=== PATIENT | male | born 1960 | race Asian ===

== ENCOUNTER 2018-02-01 20:50 | Emergency (ER) | payer OTHER ==
[2018-02-01] MEDS ORDERED: MAG HYDROX/AL HYDROX/SIMETH 30 ML UDCUP PO ONE (21:16)
[2018-02-01] MEDS ORDERED: HYOSCYAMINE SULFATE 0.125 MG TAB PO ONE (21:17)
[2018-02-01] MEDS ORDERED: ALBUTEROL 3 ML DEYVIAL IH ONE (21:26)
--- NOTE | 2018-02-01 21:27 | EDPHY ---
H & P Stated Complaint: c/o difficulty breathing and CP on and off since 08 Time Seen by Provider: 02/01/18 20:56 HPI/ROS: This patient presents with dyspnea and chest pain. He noticed the burning chest pain since 8:00 a.m. This morning waxing waning since that time but persistent through the day with no clear exacerbating or alleviating factors. Patient is primarily Monk speaking from [place] originally but speaks in [facility] with some proficient C and his son, also provides detailed history. He reports 4/10 peak intensity substernal location of the chest pain. It is nonradiating. He reports a mild sense of dyspnea in addition. He also reports a chronic cough that is dry in nature present for a year or so now. He relates that he had a normal cardiac stress test 2 weeks ago in [place] due to similar symptoms of lesser intensity. Patient denies any other associated symptoms. He notes no exacerbating factors. He came in by private vehicle. ROS: Constitutional: No fevers or chills. No fatigue. HEENT: No recent URI symptoms or other complaints pulmonary: Again dyspnea today that is mild associated with a chronic cough for over a year with dry coughs intermittently. His son notes that the patient seems to cough more after the weekend if he drinks multiple alcohol beverages the day before. Cardiovascular: Patient is dizzy this morning. No heart palpitations. No leg swelling or pain. The patient exercises vigorously yesterday including treadmill exercise and weight lifting without any chest pain. His son relates that the patient tends to work out for to 3 times a week and has not had any chest pains during this workouts. GI: No nausea. No vomiting. No abdominal pain. The patient reports a history of reflux and reports the ran out of Zantac. : No complaints Integumentary: No pallor or diaphoresis. No skin rash Neuro: No complaints 10 point review of symptoms is performed and otherwise negative with exception of pertinent positives and negatives listed in HPI and ROS Source: Patient Exam Limitations: No limitations - Personal History Current Tetanus Diphtheria and Acellular Pertussis (TDAP): Yes - Medical/Surgical History PMH: GERD Hx Asthma: No Hx Chronic Respiratory Disease: No Hx Diabetes: No Hx Cardiac Disease: No Hx Renal Disease: No Hx Cirrhosis: No Hx Alcoholism: No Hx HIV/AIDS: No Hx Splenectomy or Spleen Trauma: No Other PMH: had Stress test 2 wks ago @ [place] card /colon poylps removed - Family History Significant Family History: No pertinent family hx. No: Heart disease, Vascular disease - Social History Smoking Status: Former smoker Alcohol Use: Occasionally (Patient usually drinks some alcohol on weekends.) Drug Use: None - Physical Exam Exam: General Appearance: Pleasant male Alert, no distress. Eyes: Pupils equal and round no pallor or injection. ENT, Mouth: Mucous membranes moist. Oropharynx is clear. Respiratory: There are no retractions, lungs are clear to auscultation. No chest wall tenderness Cardiovascular: Regular rate and rhythm. No murmur gallop rub. No peripheral edema or calf swelling or tenderness maintains 2+ symmetric radialis pulses bilaterally Gastrointestinal: Abdomen is soft and nontender, no masses, bowel sounds normal. Neurological: GCS 15 with no focal deficits. Skin: Warm and dry, no rashes. Musculoskeletal: Neck is supple nontender. Extremities are symmetrical, full range of motion. Psychiatric: Mood and affect are normal DIFFERENTIAL DIAGNOSIS: After history and physical exam differential diagnosis was considered for GERD with reactive airway symptoms, esophageal spasm, bronchitis, pulmonary embolism, pneumonia, pulmonary lesion, myocardial ischemic disease Constitutional: Initial Vital Signs Temperature (C) 36.6 C 02/01/18 20:59 Heart Rate 72 02/01/18 20:59 Respiratory Rate 18 02/01/18 20:59 Blood Pressure 136/92 H 02/01/18 20:59 O2 Sat (%) 94 02/01/18 20:59 O2 Delivery Mode Room Air Allergies/Adverse Reactions: No Known Allergies Allergy (Unverified 12/14/13 13:44) Home Medications: Medication Instructions Recorded Calcium Carbonate [[id number]] 500 mg PO HS 12/06/13 Multivitamins [Multivitamin (*)] 1 tab PO HS 12/06/13 [place]-3 Fatty Acids [Fish Oil 1000 2,000 mg PO HS 12/06/13 mg (*)] Ibuprofen [Motrin (*)] 400 mg PO QID PRN 12/07/13 Fluticasone Hfa 220 Mcg [Flovent 2 puffs IH DAILY #1 mdi 02/01/18 220 MCG Hfa MDI (*)] Levalbuterol Inhaler [Xopenex Hfa 2 puffs IH Q4 PRN #1 mdi 02/01/18 Inhaler] Ranitidine HCl [Zantac] 300 mg PO HS #30 tablet 02/01/18 Medical Decision Making - Diagnostics EKG Interpretation: 12 lead EKG performed at 8:58 p.m. Reveals sinus rhythm at 68 Intervals: Normal throughout [place]ang: Normal throughout ST segments: Normal throughout Overall assessment: Sinus rhythm without evidence of acute ischemia by my interpretation Imaging Results: Two view chest x-ray: Normal by my interpretation Imaging: I viewed and interpreted images myself ED Course/Re-evaluation: Predicted peak flow 588. Patient's peak flow is 400. Patient did not tolerate the albuterol neb beyond the 1st few minutes because it caused increased coughing in the patient. I think that he will tolerate Xopenex better but he was not interested in having another neb while here tonight. Discussion: This patient presents with burning chest pain of 1 day's duration in the setting of a known history of GERD currently off of his H2 yuri due to running out of it. He has associated chronic cough and a slight tight feeling in his chest. I think this patient has reflux associated bronchial inflammation/constriction I counseled regarding this in some detail including drawing diagrams explaining it. Given normal recent stress test, normal EKG normal troponin despite a full day of pain and no significant risk factors other than age and male sex, I do not think this patient is having cardiac source of his pain. Similarly, no abnormal findings on chest x-ray that would suggest pneumonia, pneumothorax or other red flag findings. Given low risk of pulmonary embolism coming in today with a negative D-dimer, we have effectively ruled out PE. I counseled them again in some detail regarding GERD and bronchial constriction/inflammation. Will plan to treat him with return to his H2 yuri, Maalox in addition as needed for symptoms, Flovent steroid inhaler and Xopenex inhaler. Will go home with a peak flow meter to monitor his peak flows the see the improved with treatment of his GERD. He will follow up with Dr. Fernandez 7-10 days. He understands need to return emergency department should she develop worsening symptoms despite treatment plan. - Data Points Laboratory Results: POC D-dimer is within normal limits Medications Given: Discontinued Medications Al Hydroxide/Mg Hydroxide (Maalox Susp) 30 ml PO EDNOW ONE Stop: 02/01/18 21:17 Last Admin: 02/01/18 21:19 Dose: 30 ml Albuterol (Proventil Neb) 3 ml IH EDNOW ONE Stop: 02/01/18 21:27 Last Admin: 02/01/18 21:49 Dose: 3 ml Hyoscyamine Sulfate (Levsin, Hyomax-Sl) 0.125 mg PO EDNOW ONE Stop: 02/01/18 21:18 Last Admin: 02/01/18 21:19 Dose: 0.125 mg Point of Care Test Results: CBC CBC Collection Date 02/01/18 CBC Collection Time 21:07 WBC 7.3 RBC 5.05 HGB 14.8 HCT 43.7 PLT 218 Neut # 4.6 Neut 63.4 LYMPH # 1.9 LYMPH 26.2 Other WBC # 0.8 Other WBC 10.4 MCV 86.5 Chemistry 02/01/18 02/01/18 21:12 21:12 POC Sodium 137 mEq/L mEq/L (135-145) POC Potassium 3.8 mEq/L mEq/L (3.3-5.0) POC Chloride 107.0 mEq/L mEq/L (97-110) POC Total CO2 26 mEq/L mEq/L (22-31) POC BUN 12 mg/dL mg/dL (7-23) POC Creatinine 0.8 mg/dL mg/dL (0.7-1.3) POC Glucose 110 mg/dL H mg/dL (70-100) POC Calcium 9.2 mg/dL mg/dL (8.5-10.4) POC Troponin I 0.00 ng/mL ng/mL (0.00-0.08) D-Dimer D-Dimer Collection Date 02/01/18 D-Dimer Collection Time 21:07 D-Dimer (ng/ml) <100 Departure - Departure Disposition: Home, Routine, Self-Care Clinical Impression: Chronic cough GERD (gastroesophageal reflux disease) Qualifiers: Esophagitis presence: esophagitis presence not specified Qualified Code(s): K21.9 - Gastro-esophageal reflux disease without esophagitis Condition: Good Instructions: Gastroesophageal Reflux Disease (ED), Chronic Cough (ED) Additional Instructions: Diagnoses: Gastroesophageal reflux disease 2. Chronic cough Your chronic cough at and tight bronchi are likely attributable to your acid reflux. Your chest x-ray, EKG, heart enzyme, electrolytes, blood count and other labs are normal tonight Plan: Avoid acidic foods. Have a bland diet such as applesauce, bananas, etc until he feel improved. Also avoid alcohol until he feel improved Restart your Zantac 300 mg at bedtime Prop up the head of your bed with 1 or 2 2 by 4s under the legs at the head of the bed to decrease the chance of acid reflux at night by elevating the head of your bed. Maalox in addition if needed for burning chest discomfort, belching or acid reflux symptoms. Flovent steroid inhaler to diminish the inflammation in your bronchi continue this Flovent until your peak flow is a least 550. Xopenex inhaler for cough, wheeze or shortness of breath if needed Call Dr. Fernandez to arrange follow-up appointment for recheck and 7-10 days Return emergency department for any significant worsening despite the treatment plan Referrals: Marianne Fernandez MD [Primary Care Provider] - As per Instructions Prescriptions: Fluticasone Hfa 220 Mcg [Flovent 220 MCG Hfa MDI (*)] 2 puffs IH DAILY #1 mdi Levalbuterol Inhaler [Xopenex Hfa Inhaler] 2 puffs IH Q4 PRN #1 mdi PRN Reason: Wheezing Ranitidine HCl [Zantac] 300 mg PO HS #30 tablet
--- NOTE | 2018-02-01 21:51 | CPEKG ---
Test Reason : OPEN Blood Pressure : / mmHG Vent. Rate : 068 BPM Atrial Rate : 066 BPM P-R Int : 165 ms QRS Dur : 096 ms QT Int : 406 ms P-R-T Axes : 074 051 022 degrees QTc Int : 432 ms Sinus rhythm Abnormal R-wave progression, early transition Confirmed by Ede Jiang [id number]) on 02/01/2018 9:51:01 PM Referred By: Confirmed By:Ede Jiang
[2018-02-01 22:47] VITALS: BP 113/74
== END 2018-02-01 22:46 | disposition home or self-care (01) ==
LOC: CED 20:50
DX: R05 Cough (principal); Z87.891 Personal history of nicotine dependence
CPT/HCPCS: 71046-PO; 80048-PO; 84484-PO; J7613